=== PATIENT | female | born 1980 | race Caucasian/White ===

== ENCOUNTER 2017-05-28 08:08 | Outpatient (CLI) | payer OTHER ==
[~2017-05-28 08:08] MED LIST: AZO CRANBERRY1 EACH PO; FOLIC ACID0.4 MG PO; PRENATAL + DHA1 EACH PO
== END 2017-05-28 09:39 | disposition home or self-care (01) ==
LOC: NST 08:08
DX: Z34.83 Encounter for supervision of other normal pregnancy, third trimester (principal)

== ENCOUNTER 2017-06-11 07:48 | Outpatient (CLI) | payer OTHER | END 2017-06-11 09:03 | disposition home or self-care (01) | LOC: NST 07:48 | DX: Z34.83 Encounter for supervision of other normal pregnancy, third trimester (principal) ==

== ENCOUNTER 2017-06-17 10:11 | Outpatient (CLI) | payer OTHER | END 2017-06-17 11:21 | disposition home or self-care (01) | LOC: NST 10:11 | DX: Z34.83 Encounter for supervision of other normal pregnancy, third trimester (principal) ==

== ENCOUNTER 2017-06-21 17:13 | Inpatient (IN) | payer OTHER ==
[~2017-06-21] VITALS: Ht 165.1 cm; Wt 2.7 kg
[2017-06-21] MEDS ORDERED: B-COMPLEX/C T400 MCG PO (18:39)
== END 2017-06-24 15:44 | DRG 765 ==
LOC: LDR 17:13 → SURG-SUITE 20:25
PROVIDERS: Obstetrics & Gynecology
PROC: 4A1HXCZ Monitoring of Products of Conception, Cardiac Rate, External Approach (ICD-10-PCS; 2017-06-21)
PROC: 4A033R1 Measurement of Arterial Saturation, Peripheral, Percutaneous Approach (ICD-10-PCS; 2017-06-21)
PROC: 10D00Z1 Extraction of Products of Conception, Low, Open Approach (ICD-10-PCS; principal; 2017-06-21 18:00)
DX: O34.33 Maternal care for cervical incompetence, third trimester (principal); O60.14X0 Preterm labor third trimester with preterm delivery third trimester, not applicable or unspecified; Z3A.36 36 weeks gestation of pregnancy; Z37.0 Single live birth

== ENCOUNTER → 2018-03-19 | Day surgery (SDC) | payer OTHER ==
[~2018-03-19] MED LIST changes: +B-COMPLEX/C T400 MCG PO
== END | disposition home or self-care (01) ==
LOC: ADM 03-14 10:00 → CIR.AMB 06:10
DX: O34.32 Maternal care for cervical incompetence, second trimester (principal); Z3A.14 14 weeks gestation of pregnancy

== ENCOUNTER 2018-06-12 08:08 | Outpatient (CLI) | payer OTHER | END 2018-06-12 09:22 | disposition home or self-care (01) | LOC: NST 08:08 | DX: Z34.82 Encounter for supervision of other normal pregnancy, second trimester (principal) ==

== ENCOUNTER 2018-06-26 09:29 | Outpatient (CLI) | payer OTHER | END 2018-06-26 10:42 | disposition home or self-care (01) | LOC: NST 09:29 | DX: Z34.83 Encounter for supervision of other normal pregnancy, third trimester (principal) ==

== ENCOUNTER 2018-07-16 11:53 | Outpatient (CLI) | payer OTHER | END 2018-07-16 13:07 | disposition home or self-care (01) | LOC: NST 11:53 | DX: Z34.83 Encounter for supervision of other normal pregnancy, third trimester (principal) ==

== ENCOUNTER 2018-08-01 11:15 | Outpatient (CLI) | payer OTHER | END 2018-08-01 12:11 | disposition home or self-care (01) | LOC: NST 11:15 | DX: Z34.83 Encounter for supervision of other normal pregnancy, third trimester (principal) ==

== ENCOUNTER 2018-08-22 09:11 | Outpatient (CLI) | payer OTHER | END 2018-08-22 10:09 | disposition home or self-care (01) | LOC: NST 09:11 | DX: Z34.83 Encounter for supervision of other normal pregnancy, third trimester (principal) ==

== ENCOUNTER 2018-09-05 12:23 | Outpatient (CLI) | payer OTHER ==
[2018-09-05] MEDS ORDERED: VITAMIN C100 MG PO (16:13)
[2018-09-05] MEDS ORDERED: FOLIC ACID1 MG PO (16:13)
== END 2018-09-05 13:12 | disposition home or self-care (01) ==
LOC: NST 12:23
DX: Z34.83 Encounter for supervision of other normal pregnancy, third trimester (principal)

== ENCOUNTER 2018-09-05 13:51 | Inpatient (IN) | payer OTHER ==
[~2018-09-05] VITALS: Ht 165.1 cm; Wt 3.2 kg
[2018-09-05] MEDS ORDERED: FOLIC ACID1 MG PO (16:13)
[2018-09-05] MEDS ORDERED: VITAMIN C100 MG PO (16:13)
[2018-09-17] MEDS ORDERED: PRENATAL TABLE1 EAC1 PO (08:10)
[2018-09-17] MEDS ORDERED: IRON325 MG PO (08:10)
[2018-09-23] MEDS ORDERED: OXYC1TAB9 PO (07:47)
== END 2018-09-23 16:05 | disposition home or self-care (01) | DRG 786 ==
LOC: O/R 09-17 06:15 → SURG-SUITE 09-17 06:15 → OB/GYN 09-17 07:00 → SURG-SUITE 09-17 10:56 → OB/GYN 09-17 15:17 → SURG-SUITE 09-23 16:05
PROVIDERS: ADMIT Obstetrics & Gynecology Maternal & Fetal Medicine
PROC: 0UCC0ZZ Extirpation of Matter from Cervix, Open Approach (ICD-10-PCS; 2018-09-17)
PROC: 4A1HXCZ Monitoring of Products of Conception, Cardiac Rate, External Approach (ICD-10-PCS; 2018-09-17)
PROC: 10D00Z1 Extraction of Products of Conception, Low, Open Approach (ICD-10-PCS; principal; 2018-09-17 07:00)
PROC: BW21Y0Z Computerized Tomography (CT Scan) of Abdomen and Pelvis using Other Contrast, Unenhanced and Enhanced (ICD-10-PCS; 2018-09-22)
DX: O82 Encounter for cesarean delivery without indication (principal); O34.33 Maternal care for cervical incompetence, third trimester; O64.1XX0 Obstructed labor due to breech presentation, not applicable or unspecified; Z3A.39 39 weeks gestation of pregnancy; Z37.0 Single live birth; O65.5 Obstructed labor due to abnormality of maternal pelvic organs; R31.29 Other microscopic hematuria; O86.09 Infection of obstetric surgical wound, other surgical site